=== PATIENT | male | born 1965 | race Caucasian/White ===

== ENCOUNTER → 2019-09-02 | Outpatient (CLI) | payer OTHER ==
[2019-09-02 09:34] LABS: ALBUMIN 4.1 GM/DL (3.2-5.2); ALT/SGPT 47 U/L (12-78); BILIRUBIN,TOTAL 0.3 MG/DL (0.2-1.0); BLOOD UREA NITROGEN 26 MG/DL (7-18); CALCIUM LEVEL 8.9 MG/DL (8.5-10.1); CARBON DIOXIDE LEVEL 26 MEQ/L (21-32); CHLORIDE LEVEL 101 MEQ/L (98-107); CHOLESTEROL LEVEL 133 MG/DL (<200); CREATININE FOR GFR 1.59 MG/DL (0.70-1.30); GLOMERULAR FILTRATION RATE 48.9 (>56); GLUCOSE, FASTING 261 MG/DL (70-100); HDL CHOLESTEROL 25 MG/DL (>40); NON-HDL-C 108 MG/DL; POTASSIUM SERUM 4.8 MEQ/L (3.5-5.1); SODIUM LEVEL 135 MEQ/L (136-145); TOTAL PROTEIN 7.2 GM/DL (6.4-8.2); TRIGLYCERIDES LEVEL 843 MG/DL (<150)
== END ==
LOC: M LAB 08:10
PROVIDERS: ATTEND Internal Medicine Endocrinology, Diabetes & Metabolism
DX: E78.2 Mixed hyperlipidemia (principal)

== ENCOUNTER → 2019-09-02 | Outpatient (CLI) | payer OTHER ==
--- NOTE | 2019-09-03 03:37 | REP ---
Clinical: Chronic stage III renal disease. Technique: Real time forman scale and color evaluation using curved array transducer. Findings: The bilateral kidneys demonstrate increased central sinus fat and renovascular calcifications consistent with chronic renal disease. No hydronephrosis, nephrolithiasis, or renal mass lesion. Right kidney measures 12.8 x 8.2 x 7.4 cm. Left kidney measures 12.1 x 4.9 x 6.6 cm and includes 9 mm cortical cyst. The bladder is grossly unremarkable. Impression: Chronic medical renal disease without hydronephrosis. Subcentimeter left renal cyst. Electronically Signed by Jac Barkley MD 09/03/2019 03:28 A
== END ==
LOC: M RAD 07:37
PROVIDERS: ATTEND Internal Medicine Nephrology
DX: N18.3 Chronic kidney disease, stage 3 (moderate) (principal); E11.21 Type 2 diabetes mellitus with diabetic nephropathy; I12.9 Hypertensive chronic kidney disease with stage 1 through stage 4 chronic kidney disease, or unspecified chronic kidney disease; N28.1 Cyst of kidney, acquired

== ENCOUNTER → 2020-03-30 | Outpatient (REF) | payer OTHER ==
[2020-05-14 12:02] LABS: MAU/CREAT RATIO 1395.2 MCG/MG (0.0-30.0)
== END ==
LOC: M LAB REF 16:59
PROVIDERS: ATTEND Nurse Practitioner Family
DX: E11.65 Type 2 diabetes mellitus with hyperglycemia (principal)

== ENCOUNTER → 2021-08-21 | Outpatient (REF) | payer OTHER ==
[2021-08-21 18:32] LABS: CREATININE, URINE 78.3 MG/DL; MAU/CREAT RATIO 982.1 MCG/MG (0.0-30.0)
== END ==
LOC: M LAB REF 16:53
PROVIDERS: ATTEND Nurse Practitioner Family
DX: E11.65 Type 2 diabetes mellitus with hyperglycemia (principal)

== ENCOUNTER → 2022-12-13 | Outpatient (REF) | payer OTHER ==
[2022-12-13 18:37] LABS: CREATININE,RANDOM URINE 61.7 MG/DL
[2022-12-13 18:39] LABS: TOTAL PROTEIN,RANDOM URINE 203.8 MG/DL (0.0-14.0)
== END ==
LOC: M LAB REF 16:48
PROVIDERS: ATTEND Nurse Practitioner Family
DX: R80.9 Proteinuria, unspecified (principal)

== ENCOUNTER → 2023-01-24 | Outpatient (REF) | payer OTHER ==
[2023-01-24 18:17] LABS: TOTAL PROTEIN,RANDOM URINE 133.9 MG/DL (0.0-14.0)
== END ==
LOC: M LAB REF 17:06
PROVIDERS: ATTEND Nurse Practitioner Family
DX: R80.9 Proteinuria, unspecified (principal)